=== PATIENT | male | born 1975 | race African-American/Black ===

== ENCOUNTER 2023-02-15 10:20 | Emergency (ER) | payer OTHER ==
[2023-02-15 11:57] LABS: #Eosinphils 0.4 10x3/uL (0.0-0.5); #Monocytes 0.6 10x3/uL (0.0-1.1); %Basophils 0.6 % (0.0-2.0); %Eosinophils 5.3 % (0.0-6.0); %Lymphocytes 24.7 % (18.0-47.0); %Monocytes 8.3 % (0.0-10.0); %Neutrophils 60.6 % (40.0-75.0); Hematocrit 41.4 % (38.8-50.0); Hemoglobin 13.4 g/dL (13.5-17.5); Mean Corpuscular HGB CONC 32.4 g/dL (32.0-36.0); Mean Corpuscular Hemoglobin 26.8 pg (27.0-33.0); Mean Corpuscular Volume 82.8 fl (81.2-95.1); Mean Platelet Volume 10.1 fl (7.4-10.4); Platelet Count 306 10x3/uL (150-450); RBC Distribution Width 14.8 % (11.5-14.5); White Blood Cell (WBC) Count 6.6 10x3/uL (3.5-10.5)
[2023-02-15 12:05] LABS: INR-International Normal Ratio 0.9; PTT 25.6 sec (22.0-33.0)
[2023-02-15 12:11] LABS: ALT (SGPT) 31 U/L (8-55); AST (SGOT) 23 U/L (5-34); Alkaline Phosphatase 106 U/L (40-110); Anion Gap 10 mmol/L (10-20); BUN (Urea Nitrogen) 11 mg/dL (8.9-20.6); Bilirubin, Total 0.3 mg/dL (0.2-1.2); Calc. Creatinine Clearance 0 mL/min (70-130); Calcium 9.2 mg/dL (7.8-10.44); Carbon Dioxide 27 mmol/L (22-29); Chloride 107 mmol/L (98-107); Estimated GFR 98; Glucose 76 mg/dL (70-105); Sodium 140 mmol/L (136-145)
== END 2023-02-15 12:44 | disposition home or self-care (01) ==
LOC: CSHERS 10:20
DX: M79.661 Pain in right lower leg (principal); M79.662 Pain in left lower leg
CPT/HCPCS: 80053; 83735; 85025; 85610; 85730; 93970